=== PATIENT | male | born 1980 | race African-American/Black ===

== ENCOUNTER → 2018-12-07 | Emergency (ER) | payer MEDICAID ==
[~2018-12-07] VITALS: Ht 188 cm; Wt 95.3 kg
--- NOTE | 2018-12-07 01:05 | NUR ---
URINE COLLECTED AND SENT TO LAB
[2018-12-07 01:26] LABS: APPEARANCE,URINE Clear (CLEAR); BILIRUBIN,URINE Negative (NEGATIVE); BLOOD, URINE Trace-intact Ery/uL (NEGATIVE); COLOR,URINE Yellow (YELLOW); KETONES,URINE Negative (NEGATIVE); LEUKOCYTE ESTERASE ,URINE Negative (NEGATIVE); NITRITE, URINE Negative (NEGATIVE); PH,URINE 5.5 (5.0-8.0); PROTEIN,URINE 100 mg/dl (NEGATIVE); UGLUCOSE Negative (NEGATIVE); UROBILINOGEN,URINE 0.2 EU/dL (0.2)
[2018-12-07 01:34] LABS: BACTERIA,URINE None seen /HPF (None Seen); RBC,URINE 0-2 /HPF (0-2); SQUAMOUS EPITHELIAL CELL,UR Few /HPF (None Seen); WBC,URINE 0-2 /HPF (0-3)
--- NOTE | 2018-12-07 02:01 | NUR ---
Patient discharged to home in stable condition. Written and verbal after care instructions given. Patient verbalizes understanding of instruction.VSS.. Patient left with his GF in stable condition.
[2018-12-07 02:03] VITALS: BP 132/89
== END | disposition home or self-care (01) ==
LOC: ER 00:56
DX: N34.2 Other urethritis (principal)
CPT/HCPCS: 81000-TC

== ENCOUNTER 2020-06-17 16:33 | Emergency (ER) | payer MEDICAID ==
[~2020-06-17] VITALS: Ht 190.5 cm; Wt 111.1 kg
[2020-06-17] MEDS ORDERED: ACETAMINOPHEN ES 500 MG TABLET ONE (16:58)
[2020-06-17] MEDS ORDERED: ACETAMINOPHEN 325 MG TABLET PO ONE (17:00)
[2020-06-17] MEDS ORDERED: IBUP-1955 PO (17:31)
--- NOTE | 2020-06-17 17:38 | NUR ---
APPLIED R SHOULDER SLING AND THUMB SPICA
--- NOTE | 2020-06-17 17:56 | NUR ---
Patient discharged to home in stable condition. Written and verbal after care instructions given. Patient verbalizes understanding of instruction.
[2020-06-17 17:57] VITALS: BP 141/88
== END 2020-06-17 17:57 | disposition home or self-care (01) ==
LOC: ER 16:37
DX: M25.511 Pain in right shoulder (principal); M25.531 Pain in right wrist; V19.88XA Pedal cyclist (driver) (passenger) injured in other specified transport accidents, initial encounter; Y93.I9 Activity, other involving external motion; Y92.89 Other specified places as the place of occurrence of the external cause; Y99.8 Other external cause status
CPT/HCPCS: 73030-TC; 73110

== ENCOUNTER 2022-04-14 21:32 | Emergency (ER) | payer MEDICAID ==
[~2022-04-14] VITALS: Ht 190.5 cm; Wt 117.9 kg
--- NOTE | 2022-04-14 22:05 | NUR ---
BIBS C/O SOB X 2 DAYS O2 SAT 98% ROOM AIR. AMBULATORY, PLACED ON BED, BREATHING EVEN AND UNLABORED ATTACHED TO MONITOR SATURATING AT 99%RA
--- NOTE | 2022-04-14 22:58 | NUR ---
blood drawn and sent to lab
[2022-04-14 23:07] LABS: BASOPHILS % (AUTO) 0.5 % (0.0-2.0); EOSINOPHILS % (AUTO) 4.6 % (0.0-6.0); HEMATOCRIT 36 % (39-51); HEMOGLOBIN 11.9 g/dL (13.5-17.5); LYMPHOCYTES # (AUTO) 1.1 K/uL (0.8-4.8); LYMPHOCYTES % (AUTO) 23.6 % (20.0-44.0); MEAN CORPUSCULAR HGB CONC 33 g/dl (31.0-36.0); MEAN CORPUSCULAR VOLUME 86 fL (80-96); MONOCYTES # (AUTO) 0.4 K/uL (0.1-1.30); MONOCYTES % (AUTO) 8.5 % (2.0-12.0); NEUTROPHILS % (AUTO) 62.8 % (43.0-81.0); PLATELET COUNT (AUTO) 254 K/uL (150-450); RED BLOOD CELL COUNT(AUTO) 4.16 MIL/uL (4.5-6.0); WHITE BLOOD COUNT (AUTO) 4.8 K/uL (4.3-11.0)
[2022-04-14 23:13] LABS: CALCIUM, SERUM 8.6 mg/dL (8.5-10.1); CARBON DIOXIDE 31 mmol/L (21-32); CHLORIDE 110 mmol/L (98-107); CREATININE 1.2 mg/dL (0.6-1.3); GLUCOSE 93 mg/dL (74-106); POTASSIUM 4.1 mmol/L (3.5-5.1); SODIUM SERUM 139 mmol/L (136-145); UREA NITROGEN, BLOOD 16 mg/dL (7-18)
[2022-04-15] MEDS ORDERED: IOHEXOL-350 100 ML VIAL IV ONE (00:44)
[2022-04-15] MEDS ORDERED: CT SWABBABLE VALVE TRANS SET 1 EA INFUS.SET MC ONE (00:45)
[2022-04-15] MEDS ORDERED: IV NS 0.9% 250 ML IV ONE (00:45)
--- NOTE | 2022-04-15 01:29 | NUR ---
PT SENT TO CT VIA [facility]
[2022-04-15] MEDS ORDERED: ALBU18HF2 INH (03:56)
--- NOTE | 2022-04-15 04:16 | NUR ---
Patient discharged to home in stable condition. Written and verbal after care instructions given. Patient verbalizes understanding of instruction.IV removed. Catheter intact and site benign. Pressure and 4x4 applied to site. No bleeding noted.
[2022-04-15 04:17] VITALS: BP 131/80
== END 2022-04-15 04:18 | disposition home or self-care (01) ==
LOC: ER 21:34
DX: R06.02 Shortness of breath (principal); M79.89 Other specified soft tissue disorders; Z79.51 Long term (current) use of inhaled steroids
CPT/HCPCS: 99285; 71045; 93005; 85025; 80048; 85378; 36415; 84484; 71275; 93971; J7050; Q9967

== ENCOUNTER 2024-11-02 16:53 | Emergency (ER) | payer MEDICAID ==
[~2024-11-02] VITALS: Ht 190.5 cm; Wt 113.4 kg
[~2024-11-02 16:53] MED LIST: ALBU18HF2 INH
[2024-11-02 17:04] VITALS: BP 132/80; TEMP 98.4
[2024-11-02] MEDS ORDERED: DOXY100T2 PO (17:20)
[2024-11-02] MEDS ORDERED: CEFTRIAXONE 500 MG VIAL ONE (17:22)
[2024-11-02] MEDS ORDERED: LIDOCAINE /MPF 1% VIAL 5 ML VIAL ONE (17:22)
[2024-11-02] MEDS: CEFTRIAXONE 500 MG VIAL IM ONE (17:31)
[2024-11-02 17:45] VITALS: O2SAT 99
== END 2024-11-02 17:46 | disposition home or self-care (01) ==
LOC: ER 16:58
DX: A64 Unspecified sexually transmitted disease (principal); Z79.899 Other long term (current) drug therapy
CPT/HCPCS: 99283; 96372; J0696; J3490